=== PATIENT | female | born 1970 | race African-American/Black ===

== ENCOUNTER 2017-09-21 19:37 | Emergency (ER) | payer SELFPAY, OTHER ==
[2017-09-21] MEDS: NEOMY/BACITR/POLYMYXIN OINT PACKET. TP (21:45)
[2017-09-21] MEDS: DIPHTH,PERTUSS(ACELL),TET TOX 0.5 ML DISP.SYRIN. VAX IM (22:12)
== END 2017-09-21 22:00 | disposition home or self-care (01) ==
LOC: ER 22:00
DX: S71.151A Open bite, right thigh, initial encounter (principal); W54.0XXA Bitten by dog, initial encounter; Y93.89 Activity, other specified; Y92.89 Other specified places as the place of occurrence of the external cause; Y99.8 Other external cause status
CPT/HCPCS: 90471; 90715; 96372; 99283

== ENCOUNTER 2018-12-25 12:34 | Emergency (ER) | payer MEDICAID ==
[~2018-12-25] VITALS: Ht 162.6 cm; Wt 75.0 kg
[~2018-12-25 12:34] MED LIST: AMOX1TAB61 PO; CEPH-264 PO; CIPR500T94 PO; NAPR500T8 PO; PHEN-318 PO
[2018-12-25] MEDS ORDERED: IV NORMAL SALINE 1000ML BAG 1,000 ML IV ONE (13:01)
--- NOTE | 2018-12-25 13:11 | PHYS DOC ---
Past Medical History Past Medical History: No Pertinent History Past Surgical History: , Tubal ligation Additional Past Surgical Histo: FACIAL Alcohol Use: Occasionally Drug Use: None Adult General Chief Complaint Chief Complaint: ABDOMINAL PAIN HPI HPI 48-year-old female presenting the emergency department today with lower abdominal pain that is sharp shooting. It is been present for about 24-48 hrs. He denies nausea or vomiting. She denies blood in her stools. She denies dyspareunia. She denies recent exposure to STDs. Review of systems is negative for chest pain shortness of breath fevers chills or vomiting. All other review of systems is negative. ED course: 40-year-old female presenting the emergency department with lower abdominal pain. Vital signs unremarkable. CBC shows mildly low hemoglobin. Chemistry panel unremarkable. Urinalysis unremarkable. Negative test. CT abdomen pelvis shows no signs of appendicitis. Pelvic ultrasound shows right adnexal tubular fluid collection representing either a cyst or hydrosalpinx. We will discharge and refer the patient to gynecology in 2-3 days. Current Medications Current Medications Current Medications Medications (Trade) Dose Ordered Sig/[place] Start Time Stop Time Status Last Admin Dose Admin Acetaminophen/ Hydrocodone Bitart (Lortab 5/325) 1 tab 1X ONCE 12/25/18 16:00 12/25/18 16:01 DC 12/25/18 15:55 1 TAB Info (CONTRAST GIVEN -- Rx MONITORING) 1 each PRN DAILY PRN 12/25/18 14:00 12/25/18 16:41 DC Iohexol (Omnipaque 300 Mg/ml) 75 ml 1X ONCE 12/25/18 13:45 12/25/18 13:47 DC 12/25/18 14:03 75 ML Sodium Chloride 1,000 ml @ 1,000 mls/hr Q1H ONCE 12/25/18 13:01 12/25/18 14:00 DC 12/25/18 13:14 1,000 MLS/HR Allergies Allergies Allergies Coded Allergies Type Severity Reaction Last Updated Verified No Known Drug Allergies 01/24/16 No Physical Exam Physical Exam Constitutional: Well developed, well nourished, no acute distress, non-toxic appearance. HENT: Normocephalic, atraumatic, bilateral external ears normal, oropharynx moist, no oral exudates, nose normal. [] Eyes: PERRLA, EOMI, conjunctiva normal, no discharge. Neck: Normal range of motion, no tenderness, supple, no stridor. [] Cardiovascular:Heart rate regular rhythm, no murmur Lungs & Thorax: Bilateral breath sounds clear to auscultation Abdomen: Bowel sounds normal, soft, no tenderness, no masses, no pulsatile masses. Negative for fevers. Negative Vann sign. Skin: Warm, dry, no erythema, no rash. Back: No tenderness, no CVA tenderness. [] Extremities: No tenderness, no cyanosis, no clubbing, ROM intact, no edema. [] Neurologic: Alert and oriented X 3, normal motor function, normal sensory f unction, no focal deficits noted. Psychologic: Affect normal, judgement normal, mood normal. [] Current Patient Data Vital Signs Vital Signs Date Time Temp Pulse Resp B/P (MAP) Pulse Ox O2 Delivery O2 Flow Rate FiO2 12/25/18 16:29 62 16 135/88 (104) 100 Room Air 12/25/18 12:52 99.1 99.1 Lab Values Laboratory Tests Test 12/25/18 13:00 12/25/18 13:01 12/25/18 13:15 Urine Collection Type Unknown Urine Color Yellow Urine Clarity Clear Urine pH 5.0 Urine Specific [place] 1.020 Urine Protein Negative mg/dL (NEG-TRACE) Urine Glucose (UA) Negative mg/dL (NEG) Urine Ketones (Stick) Negative mg/dL (NEG) Urine Blood Negative (NEG) Urine Nitrite Negative (NEG) Urine Bilirubin Negative (NEG) Urine Urobilinogen Dipstick 0.2 mg/dL (0.2 mg/dL) Urine Leukocyte Esterase Negative (NEG) Urine RBC 0 /HPF (0-2) Urine WBC Occ /HPF (0-4) Urine Squamous Epithelial Cells Mod /LPF Urine Bacteria 0 /HPF (0-FEW) Urine Mucus Mod /LPF POC Urine HCG, Qualitative Hcg negative (Negative) White Blood Count 7.2 x10^3/uL (4.0-11.0) Red Blood Count 4.36 x10^6/uL (3.50-5.40) Hemoglobin 11.1 g/dL (12.0-15.5) L Hematocrit 33.9 % (36.0-47.0) L Mean Corpuscular Volume 78 fL (79-100) L Mean Corpuscular Hemoglobin 25 pg (25-35) Mean Corpuscular Hemoglobin Concent 33 g/dL (31-37) Red Cell Distribution Width 16.4 % (11.5-14.5) H Platelet Count 266 x10^3/uL (140-400) Neutrophils (%) (Auto) 68 % (31-73) Lymphocytes (%) (Auto) 18 % (24-48) L Monocytes (%) (Auto) 9 % (0-9) Eosinophils (%) (Auto) 4 % (0-3) H Basophils (%) (Auto) 1 % (0-3) Neutrophils # (Auto) 4.9 x10^3/uL (1.8-7.7) Lymphocytes # (Auto) 1.3 x10^3/uL (1.0-4.8) Monocytes # (Auto) 0.7 x10^3/uL (0.0-1.1) Eosinophils # (Auto) 0.3 x10^3/uL (0.0-0.7) Basophils # (Auto) 0.1 x10^3/uL (0.0-0.2) Sodium Level 140 mmol/L (136-145) Potassium Level 3.9 mmol/L (3.5-5.1) Chloride Level 105 mmol/L (98-107) Carbon Dioxide Level 28 mmol/L (21-32) Anion Gap 7 (6-14) Blood Urea Nitrogen 14 mg/dL (7-20) Creatinine 1.0 mg/dL (0.6-1.0) Estimated GFR (Cockcroft-Gault) 71.6 BUN/Creatinine Ratio 14 (6-20) Glucose Level 76 mg/dL (70-99) Calcium Level 9.4 mg/dL (8.5-10.1) Total Bilirubin 0.5 mg/dL (0.2-1.0) Aspartate Amino Transferase (AST) 24 U/L (15-37) Alanine Aminotransferase (ALT) 21 U/L (14-59) Alkaline Phosphatase 78 U/L (46-116) Total Protein 8.2 g/dL (6.4-8.2) Albumin 3.6 g/dL (3.4-5.0) Albumin/Globulin Ratio 0.8 (1.0-1.7) L Lipase 118 U/L (73-393) Laboratory Tests 10/4/19 13:15 Laboratory Tests 12/25/18 13:15 EKG EKG [] Radiology/Procedures Radiology/Procedures [] Course & Med Decision Making Course & Med Decision Making Pertinent Labs and Imaging studies reviewed. (See chart for details) [] Dragon Disclaimer Dragon Disclaimer This electronic medical record was generated, in whole or in part, using a voice recognition dictation system. Departure Departure Impression: Primary Impression: Abdominal pain Disposition: HOME, SELF-CARE Condition: STABLE Referrals: NO PCP (PCP) Patient Instructions: Ovarian Cyst Additional Instructions: Thank you for allowing us to participate in your care today. Return to the emergency department you have any new or worsening symptoms, or if you are concerned for any reason. Return to emergency department if you have any new or concerning symptoms including but not limited to fever, chills, nausea, vomiting, intractable pain, any new rashes, chest pain, shortness of air, uncontrolled bleeding, difficulty breathing, and/or vision loss. Follow up with your primary care physician within 1-2 days. Call your Primary Doctor tomorrow and inform them of your visit today. If you do not have a primary care provider we are happy to provide you with a list of our primary care providers contact information. This condition should be evaluated by your primary care physician and any recommended consulting services for continued management within 2 days after discharge. If at any time, you are having difficulty getting into your primary care doctor or a specialist, return to the emergency department. Scripts Hydrocodone Bit/Acetaminophen (HYDROCODONE-APAP 5-325 ) 1 Tab Tablet 1 TAB PO PRN Q8HRS PRN for sev, #8 TAB 0 Refills Prov: JASON HERZOG MD 12/25/18 JASON HERZGO MD Dec 25, 2018 13:10
[2018-12-25 13:26] LABS: BASO # 0.1 x10^3/uL (0.0-0.2); BASO % 1 % (0-3); EOS # 0.3 x10^3/uL (0.0-0.7); EOS % 4 % (0-3); HEMATOCRIT 33.9 % (36.0-47.0); HEMOGLOBIN 11.1 g/dL (12.0-15.5); LYMPH # 1.3 x10^3/uL (1.0-4.8); LYMPH % 18 % (24-48); MEAN CORPUSCULAR HEMOGLOBIN 25 pg (25-35); MEAN CORPUSCULAR HGB CONC 33 g/dL (31-37); MEAN CORPUSCULAR VOLUME 78 fL (79-100); MONO # 0.7 x10^3/uL (0.0-1.1); MONO % 9 % (0-9); NEUT # 4.9 x10^3/uL (1.8-7.7); NEUT % 68 % (31-73); PLATELET COUNT 266 x10^3/uL (140-400); RED BLOOD COUNT 4.36 x10^6/uL (3.50-5.40); RED CELL DISTRIBUTION WIDTH 16.4 % (11.5-14.5); WHITE BLOOD COUNT 7.2 x10^3/uL (4.0-11.0)
[2018-12-25 13:30] LABS: BILIRUBIN,URINE NEGATIVE (NEG); CLARITY,URINE CLEAR; COLOR,URINE YELLOW; NITRITE,URINE NEGATIVE (NEG); PROTEIN,URINE NEGATIVE (NEG-TRACE); UROBILINOGEN,URINE 0.2 mg/dL (0.2 mg/dL)
[2018-12-25 13:43] LABS: CALCIUM 9.4 mg/dL (8.5-10.1); GFR 71.6; POTASSIUM 3.9 mmol/L (3.5-5.1)
[2018-12-25] MEDS ORDERED: IOHEXOL 300 MG/ML 100ML VIAL. IV ONE (13:45)
[2018-12-25 13:47] LABS: BACTERIA,URINE 0 /HPF (0-FEW); RBC,URINE 0 /HPF (0-2); SQUAMOUS EPITHELIAL CELL,UR MOD /LPF; WBC,URINE OCC /HPF (0-4)
[2018-12-25 13:49] LABS: ALBUMIN 3.6 g/dL (3.4-5.0); ALBUMIN/GLOBULIN RATIO 0.8 (1.0-1.7); TOTAL BILIRUBIN 0.5 mg/dL (0.2-1.0); TOTAL PROTEIN 8.2 g/dL (6.4-8.2)
[2018-12-25] MEDS ORDERED: CONTRAST GIVEN. MC PRN (14:00)
--- NOTE | 2018-12-25 14:29 | RAD ---
Study: CT abdomen/pelvis with intravenous contrast Indication: Lower abdominal pain. Comparison: None. Technique: Helical CT imaging performed of the abdomen and pelvis after the intravenous administration of 75 cc Omnipaque 300 contrast. Sagittal and coronal reformats were obtained. One or more of the following individualized dose reduction techniques were utilized for this examination: 1. Automated exposure control 2. Adjustment of the mA and/or kV according to patient size 3. Use of iterative reconstruction technique. Findings: Lower lungs and visualized heart are unremarkable. Unremarkable liver, pancreas, spleen, adrenal glands, kidneys, collecting systems and urinary bladder. A few areas of colon exhibit fatty deposition within the wall as can be seen with chronic inflammation. No pericolonic inflammatory changes seen at this time to suggest an active colitis. The appendix is well-visualized throughout its course and is without findings of appendicitis. Nonobstructed small bowel. The incompletely distended stomach is unremarkable. Thickening of the endometrium. The left adnexal region is unremarkable. Tubular, centrally low attenuating structure in the right adnexal region, image 66 series 2 measures approximately 2.2 cm transverse by 5.6 cm AP and measures approximately 2.8 cm craniocaudal. Thin wall around this structure without surrounding inflammatory changes. No free fluid or air. No mesenteric or pelvic adenopathy. No acute abnormality involving the body wall soft tissues or osseous structures. Impression: No definite acute abnormality seen throughout the abdomen or pelvis to account for the patient's symptoms. A tubular low attenuating structure in the right adnexal region measuring approximately 2.2 cm transverse by 5.6 cm AP by 2.8 cm craniocaudal is without surrounding inflammatory changes and is favored to represent simple ovarian/paraovarian cyst(s) as opposed to hydrosalpinx or pyosalpinx. Within normal limits appearance of the endometrium given patient age assuming a premenopausal state. If there is ongoing concern, targeted pelvic sonography could be performed to further characterize. Electronically signed by: LUDWIN ISAAC MD (12/25/2018 2:26 PM) [facility] [id number]
--- NOTE | 2018-12-25 15:49 | RAD ---
Examination: PELVIS W/TV History: Right adnexal lesion on CT exam Comparison/Correlation: 12/25/2018 CT abdomen and pelvis with contrast Findings: Transabdominal and transvaginal pelvic ultrasound was performed. Transvaginal technique was utilized to better assess the adnexal structures. Uterus measures 7.5 cm x 4 cm x 5 cm. Endometrial thickness is 0.67. Myometrium is unremarkable. No fluid or other contents within the endometrial cavity. Right adnexa has a 5.6 cm x 2.5 cm x 2.3 cm anechoic structure with no flow on color or spectral Doppler imaging. Ovaries are not delineated due to overlying bowel gas. No pelvic free fluid. Impression: Right adnexal tubular fluid collection is present which may represent a cyst or possibly hydrosalpinx. No solid components identified. Correlate clinically in determining interval follow-up to assess stability or resolution. Electronically signed by: Olman Azevedo MD (12/25/2018 3:46 PM) [facility]
[2018-12-25] MEDS ORDERED: HYDROcodone/APAP 5/325MG 1 TAB TABLET PO ONE (16:00)
[2018-12-25] MEDS ORDERED: HYDR-2761 PO (16:21)
[2018-12-25 16:29] VITALS: BP 135/88
== END 2018-12-25 16:41 | disposition home or self-care (01) ==
LOC: ER 12:34
DX: R10.30 Lower abdominal pain, unspecified (principal); Z98.890 Other specified postprocedural states; Z98.51 Tubal ligation status
CPT/HCPCS: 36415; 74177; 76830; 76856; 80053; 81001; 81025; 83690; 85025; 99285; J7030; Q9967

== ENCOUNTER 2019-06-03 07:35 | Emergency (ER) | payer OTHER, MEDICAID ==
[~2019-06-03] VITALS: Ht 157.5 cm; Wt 72.7 kg
[~2019-06-03 07:35] MED LIST changes: +HYDR-2761 PO
[2019-06-03 07:51] VITALS: BP 175/92
--- NOTE | 2019-06-03 07:56 | PHYS DOC ---
Past Medical History Past Medical History: No Pertinent History Past Surgical History: , Tubal ligation Additional Past Surgical Histo: FACIAL Smoking Status: Never Smoker Alcohol Use: Occasionally Drug Use: None Adult General Chief Complaint Chief Complaint: UPPER EXTREMITY PAIN HPI HPI Patient is a 48 year old female who presented to the ER today due to painful blisters on her left palm for 12 days, not sure what happened. no fever. NO RASH ANYWHERE ELSE. Review of Systems Review of Systems Constitutional: Denies fever or chills [] Eyes: Denies change in visual acuity, redness, or eye pain [] HENT: Denies nasal congestion or sore throat [] Respiratory: Denies cough or shortness of breath [] Cardiovascular: No additional information not addressed in HPI [] GI: Denies abdominal pain, nausea, vomiting, bloody stools or diarrhea [] : Denies dysuria or hematuria [] Musculoskeletal: Denies back pain or joint pain [] Integument: POSITIVE FOR RASH ON HAND] Neurologic: Denies headache, focal weakness or sensory changes [] Endocrine: Denies polyuria or polydipsia [] All other systems were reviewed and found to be within normal limits, except as documented in this note. Allergies Allergies Allergies Coded Allergies Type Severity Reaction Last Updated Verified No Known Drug Allergies 01/24/16 No Physical Exam Physical Exam Constitutional: Well developed, well nourished, no acute distress, non-toxic appearance. [] HENT: Normocephalic, atraumatic, bilateral external ears normal, oropharynx moist, no oral exudates, nose normal. [] Eyes: PERRLA, EOMI, conjunctiva normal, no discharge. [] Neck: Normal range of motion, no tenderness, supple, no stridor. [] Cardiovascular:Heart rate regular rhythm, no murmur [] Lungs & Thorax: Bilateral breath sounds clear to auscultation [] Abdomen: Bowel sounds normal, soft, no tenderness, no masses, no pulsatile masses. [] Skin: Warm, dry, THERE ARE MULTIPLE BLISTERS WITH WHITE FLUID INSIDE ON THE PALM OF LEFT HAND, TENDER TO TOUCH, Back: No tenderness, no CVA tenderness. [] Extremities: No tenderness, no cyanosis, no clubbing, ROM intact, no edema. [] Neurologic: Alert and oriented X 3, normal motor function, normal sensory function, no focal deficits noted. [] Psychologic: Affect normal, judgement normal, mood normal. [] Current Patient Data Vital Signs Vital Signs Date Time Temp Pulse Resp B/P (MAP) Pulse Ox O2 Delivery O2 Flow Rate FiO2 06/03/19 07:51 98.2 63 18 175/92 (119) 99 Room Air 98.2 EKG EKG [] Radiology/Procedures Radiology/Procedures [] Course & Med Decision Making Course & Med Decision Making Pertinent Labs and Imaging studies reviewed. (See chart for details) [] Dragon Disclaimer Dragon Disclaimer This electronic medical record was generated, in whole or in part, using a voice recognition dictation system. Departure Departure Impression: Primary Impression: Cellulitis of palm of hand Disposition: HOME, SELF-CARE Condition: STABLE Referrals: UNKNOWN PCP NAME (PCP) FOLLOW UP WITH YOUR FAMILY DOCTOR ON FRIDAY FOR REEVALUATION. Patient Instructions: Cellulitis Additional Instructions: Thank you for visiting our Emergency Department. We appreciate you trusting us with your care. If any additional problems come up don't hesitate to return to visit us. Please follow up with your primary care provider so they can plan additional care if needed and know about the problem that you had. If symptoms worsen come back to the Emergency Department. Any concerning symptoms that start such as chest pain, shortness of air, weakness or numbness on one side of the body, running high fevers or any other concerning symptoms return to the ER. Scripts Cephalexin (KEFLEX) 500 Mg Capsule 1 CAP PO QID for 7 Days, #28 CAP 0 Refills Prov: BROOKLYNN TURCIOS DO 06/03/19 Sulfamethoxazole/Trimethoprim (BACTRIM DS TABLET) 1 Each Tablet 1 TAB PO BID for 10 Days, #20 TAB 0 Refills Prov: BROOKLYNN TURCIOS DO 06/03/19 BROOKLYNN TURCIOS DO Jun 03, 2019 07:56
[2019-06-03] MEDS ORDERED: CEPH-264 PO (08:15)
[2019-06-03] MEDS ORDERED: SULF1TAB24 PO (08:15)
== END 2019-06-03 08:50 | disposition home or self-care (01) ==
LOC: ER 07:35
DX: S60.522A Blister (nonthermal) of left hand, initial encounter (principal); L03.114 Cellulitis of left upper limb; X58.XXXA Exposure to other specified factors, initial encounter; Y93.89 Activity, other specified; Y92.89 Other specified places as the place of occurrence of the external cause; Y99.8 Other external cause status
CPT/HCPCS: 99283

== ENCOUNTER 2020-08-29 09:08 | Emergency (ER) | payer MEDICAID, OTHER ==
[~2020-08-29] VITALS: Ht 170.2 cm; Wt 72.0 kg
[~2020-08-29 09:08] MED LIST changes: +SULF1TAB24 PO
[2020-08-29 09:23] VITALS: BP 151/81
[2020-08-29] MEDS ORDERED: AMOX1TAB61 PO (10:13)
--- NOTE | 2020-08-29 10:14 | ED.ADGEN ---
Past Medical History Past Medical History: No Pertinent History Past Surgical History: Other Additional Past Surgical Histo: "face" surgery, ovarian cyst Smoking Status: Never Smoker Alcohol Use: Rarely Drug Use: None General Adult EDM: Chief Complaint: EARACHE/EAR PAIN HPI: HPI: Patient is a 49 year old female coming in for right ear pain. States she has also had some brownish drainage from the ear after sleeping on her right side. Denies any tinnitus or hearing loss. States she has a fullness feeling in her ear but no popping. States she uses Q-tips regularly. Denies any recent swimming. No systemic complaints says symptoms been gradually getting worse ov er 2 weeks. Review of Systems: Review of Systems: All other systems within normal limits except for as noted in the HPI Allergies: Allergies: Allergies Coded Allergies Type Severity Reaction Last Updated Verified No Known Drug Allergies 01/24/16 No Physical Exam: PE: Constitutional: Well developed, well nourished, no acute distress, non-toxic appearance. [] HENT: Normocephalic, atraumatic, bilateral external ears normal, nose normal. Left TM and canal normal with moderate cerumen. Right canal erythematous with purulent fluid, erythema of TM. Due to purulence unable to visualize entire tympanic membrane. No mastoid tenderness [] Eyes: PERRLA, conjunctiva normal, no discharge. [] Neck: No rigidity, supple, no stridor. [] Cardiovascular: Regular rate and rhythm, brisk cap refill [] Lungs & Thorax: Non labored symmetric respirations, no tachypnea or respiratory distress [] Abdomen: Soft, nondistended. Skin: Warm, dry, no erythema, no rash. [] Back: Unremarkable Extremities: No deformities, range of motion grossly intact, no lower extremity edema [] Neurologic: Alert and oriented X 3, no focal deficits noted. [] Psychologic: Affect normal, judgement normal, mood normal. [] Current Patient Data: Vital Signs: Vital Signs Date Time Temp Pulse Resp B/P (MAP) Pulse Ox O2 Delivery O2 Flow Rate FiO2 08/29/20 09:23 98.0 68 18 151/81 (104) 93 Room Air 98.0 EKG: EKG: [] Heart Score: C/O Chest Pain: No Risk Factors: Risk Factors: DM, Current or recent (<one month) smoker, HTN, HLP, family history of CAD, obesity. Risk Scores: Score 0 - 3: 2.5% MACE over next 6 weeks - Discharge Home Score 4 - 6: 20.3% MACE over next 6 weeks - Admit for Clinical Observation Score 7 - 10: 72.7% MACE over next 6 weeks - Early Invasive Strategies Radiology/Procedures: Radiology/Procedures: [] Course & Med Decision Making: Course & Med Decision Making Erythema of TM, will treat for otitis media and externa. Dragon Disclaimer: Dragon Disclaimer: This electronic medical record was generated, in whole or in part, using a voice recognition dictation system. Departure Departure Impression: Primary Impression: Otitis externa Additional Impression: Otitis media Disposition: HOME / SELF CARE / HOMELESS Condition: STABLE Referrals: CHERYLE KULKARNI MD Patient Instructions: Otitis Externa Additional Instructions: Eardrops: 4 drops in right ear every 6 hours for 7 days. Scripts Amoxicillin/Potassium Clav (AUGMENTIN 875-125 TABLET) 1 Each Tablet 1 TAB PO BID for antibiotic for 7 Days, #14 TAB 0 Refills Prov: EILEEN CASTILLO MD 08/29/20 Problem Qualifiers EILEEN CASTILLO MD Aug 29, 2020 10:14
[2020-08-29] MEDS ORDERED: NEOMYCIN/POLYMYXIN/HC OTIC SUSPENSION 10ML BOTTLE. AD ONE (10:30)
== END 2020-08-29 10:22 | disposition home or self-care (01) ==
LOC: ER 09:08
DX: H66.93 Otitis media, unspecified, bilateral (principal); H60.93 Unspecified otitis externa, bilateral
CPT/HCPCS: 99283